=== PATIENT | male | born 1950 | race Caucasian/White ===

== ENCOUNTER 2020-02-26 19:06 | Emergency (ER) | payer MEDICARE ==
[~2020-02-26] VITALS: Ht 167.6 cm; Wt 91.0 kg
[2020-02-27] MEDS: BACITRACIN ZINC OINT UDPKT TOP ONE (01:34)
[2020-02-27] MEDS: HYDROCODONE/ACETAMINOPHEN 5/325MG TABLET PO STA (01:34)
[2020-02-27 03:18] VITALS: BP 156/96
== END 2020-02-27 03:19 | disposition home or self-care (01) ==
LOC: ER 19:06
DX: S62.001A Unspecified fracture of navicular [scaphoid] bone of right wrist, initial encounter for closed fracture (principal); S52.591A Other fractures of lower end of right radius, initial encounter for closed fracture; S00.81XA Abrasion of other part of head, initial encounter; S70.11XA Contusion of right thigh, initial encounter; M25.531 Pain in right wrist; I10 Essential (primary) hypertension; V43.52XA Car driver injured in collision with other type car in traffic accident, initial encounter; Y93.9 Activity, unspecified; Y92.410 Unspecified street and highway as the place of occurrence of the external cause; Z98.890 Other specified postprocedural states
CPT/HCPCS: 29125; 71101; 73110; 73130; 73502; 73552; 99284